=== PATIENT | female | born 1985 | race Caucasian/White ===

== ENCOUNTER 2017-09-07 20:36 | Emergency (ER) | payer BC ==
[2017-09-07] MEDS ORDERED: NS 0.9% 1000 ML* 1,000 ML IV ONE (21:52)
[2017-09-07 22:38] LABS: Hematocrit 34 % (35-47); Hemoglobin 10.8 g/dl (12.0-16.0); Mean Corpuscular HGB Conc 32 g/dl (31-36); Mean Corpuscular Hemoglobin 22 pg (27-31); Mean Corpuscular Volume 69 fL (80-97); Mean Platelet Volume 8.2 um3 (7.4-10.4); Platelet Count 267 10^3/ul (150-450); Red Blood Count 4.85 10^6/ul (4.0-5.4); Red Cell Distribution Width 17 % (10.5-15); White Blood Count 7.3 10^3/ul (3.5-10.8)
[2017-09-07 22:47] LABS: INR 0.93 (0.77-1.02)
[2017-09-07 22:53] LABS: EGFR Non-African American 87.6 (>60)
[2017-09-07] MEDS ORDERED: Potassium Chlor TAB* 20 MEQ TAB.ER PO ONE (22:58)
[2017-09-07 23:18] LABS: ABS Basophils 0.1 10^3/ul (0-0.2); ABS Eosinophils 0.1 10^3/ul (0-0.6); ABS Monocytes 0.5 10^3/ul (0-0.8); ABS Neutrophils 3.6 10^3/ul (1.5-7.7); ABS Nucleated RBC 0 10^3/ul; Eosinophil % 1.4 % (0-6); Lymphocyte % 41.9 % (25-47); Nucleated Red Blood Cells % 0.1
--- NOTE | 2017-09-07 23:38 | ED ---
Chris Cho Rebecca, scribed for Victoriano Gavin MD on 09/07/17 at 2148 . Shortness of Breath - HPI Summary HPI Summary: Pt is a 32 y/o F who presents to ED c/o SOB characterized as dyspnea at rest. Sx have been present for about 1 month, becoming significantly worse tonight at 1999 after eating dinner. SOB unchanged by inhalers. Additionally c/o lightheadedness. Has been following up with her [employer] Berta Jonas and Dr. Ramsey. Has had a CXR and blood work done, which showed slight anemia, and has an echocardiogram scheduled for tomorrow. Menstrual periods are light and she does not have children. 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 Negative PMHx anemia. - History of Current Complaint Chief Complaint: EDShortnessOfBreath Time Seen by Provider: 09/07/17 21:32 Hx Obtained From: Patient Onset/Duration: Still Present, Worse Since - 1999 Dyspnea At: Rest Aggrevating Factors: Nothing Alleviating Factors: Nothing Associated Signs & Symptoms: Dizzy - Lightheadedness - Allergy/Home Medications Allergies/Adverse Reactions: Allergies Allergy/AdvReac Type Severity Reaction Status Date / Time No Known Allergies Allergy Verified 09/07/17 20:44 Home Medications: Home Medications Budesonide Flexhaler 180 (NF) [Pulmicort Flexhaler 180 mcg/act (NF)] 2 puff INH BID 09/07/17 [History Confirmed 09/07/17] Escitalopram Oxalate [Lexapro 10 mg] 10 mg PO DAILY 09/07/17 [History Confirmed 09/07/17] PMH/Surg Hx/FS Hx/Imm Hx Endocrine/Hematology History: Denies: Hx Diabetes, Hx Thyroid Disease Cardiovascular History: Denies: Hx Congestive Heart Failure, Hx Hypertension, Hx Pacemaker/ICD, Other Cardiovascular Problems/Disorders Respiratory History: Denies: Hx Asthma, Hx Chronic Obstructive Pulmonary Disease (COPD) GI History: Denies: Hx Ulcer Psychiatric History: Reports: Hx Anxiety, Hx Depression - Surgical History Surgery Procedure, Year, and Place: open heart surgery at one month old Infectious Disease History: No Infectious Disease History: Denies: Hx Hepatitis, Hx Human Immunodeficiency Virus (HIV), Traveled Outside the [place] in Last 30 Days - Family History Known Family History: Positive: Other - PE - mother - Social History Alcohol Use: None Substance Use Type: Reports: None Hx Tobacco Use: No Smoking Status (MU): Never Smoked Tobacco Review of Systems Negative: Fever Positive: Shortness Of Breath Neurological: Other - Lightheadedness All Other Systems Reviewed And Are Negative: Yes Physical Exam - Summary Physical Exam Summary: VITAL SIGNS: Reviewed. GENERAL: ~Patient is a well-developed and nourished female who is lying comfortable in the stretcher. Patient is not in any acute respiratory distress. HEAD AND FACE: No signs of trauma. No ecchymosis, hematomas or skull depressions. No sinus tenderness. EYES: PERRLA, EOMI x 2, No injected conjunctiva, no nystagmus. EARS: Hearing grossly intact. Ear canals and tympanic membranes are within normal limits. MOUTH: Oropharynx within normal limits. NECK: Supple, trachea is midline, no adenopathy, no JVD, no carotid bruit, no c- spine tenderness, neck with full ROM. CHEST: Symmetric, no tenderness at palpation LUNGS: Clear to auscultation bilaterally. No wheezing or crackles. CVS: Regular rate and rhythm, S1 and S2 present, 2-2 systolic murmur over the left sternal border, no gallops appreciated. ABDOMEN: Soft, non-tender. No signs of distention. No rebound no guarding, and no masses palpated. Bowel sounds are normal. EXTREMITIES: FROM in all major joints, no edema, no cyanosis or clubbing. NEURO: Alert and oriented x 3. No acute neurological deficits. Speech is normal and follows commands. SKIN: Dry and warm, pale Triage Information Reviewed: Yes Vital Signs On Initial Exam: Initial Vitals Temp Pulse Resp BP Pulse Ox 98.1 F 52 20 128/72 100 09/07/17 20:39 09/07/17 20:39 09/07/17 20:39 09/07/17 20:39 09/07/17 20:39 Vital Signs Reviewed: Yes Diagnostics - Vital Signs Vital Signs Temp Pulse Resp BP Pulse Ox 09/07/17 20:39 98.1 F 52 20 128/72 100 - Laboratory Result Diagrams: 09/07/17 22:21 09/07/17 22:21 Lab Statement: Any lab studies that have been ordered have been reviewed, and results considered in the medical decision making process. - Radiology CXR Xray Interpretation: No Acute Changes - Pending official report. Radiology Interpretation Completed By: ED Physician - EKG 2204 Cardiac Rate: Bradycardia - 54 bpm EKG Interpretation: 1st degree AV block. Normal axis, no ischemic changes. Re-Evaluation - Re-Evaluation First Eval Re-Evaluation Time: 23:25 Change: Improved Comment: Pt's sx have improved. Discussed results. Course/Dx - Course Assessment/Plan: Pt is a 32 y/o F who presents to ED c/o SOB characterized as dyspnea at rest for about 1 month, worsening tonight at 2000 after eating dinner , unchanged by inhalers with lightheadedness. Has been following up with her [employer] Berta Jonas and Dr. Ramsey. 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 Negative PMHx anemia. Blood work was done with results inclduing a troponin of 0.00. CXR reveals no acute findings. EKG is sinus bradycardia with no ischemic changes. In the ED course, pt received potassium chloride and fluids. On reevaluaiton, she is feeling better. She will be D/C to home with Dx of anxiety and SOB with a follow up with her wheat buyer tomorrowas scheduled. She understands and agrees. - Diagnoses Provider Diagnoses: Shortness of breath, Anxiety Discharge - Sign-Out/Discharge Documenting (check all that apply): Discharge/Admit/Transfer - Discharge - Discharge Plan Condition: Stable Disposition: HOME Patient Education Materials: Anxiety (ED), Shortness of Breath (ED) Referrals: Christina Sims MD [Primary Care Provider] - 3 Days Additional Instructions: RETURN TO ED FOR ANY NEW OR WORSENING SYMPTOMS. Follow up with cardiology tomorrow, as scheduled. The documentation as recorded by the Chris posada Rebecca accurately reflects the service I personally performed and the decisions made by me, Victoriano Gavin MD.
[2017-09-07 23:46] VITALS: BP 103/61
--- NOTE | 2017-09-08 07:26 | RAD ---
INDICATION: Shortness of breath. COMPARISON: Comparison is made with a prior study from September 01, 2017. TECHNIQUE: Dual-energy PA and lateral views of the chest were obtained. FINDINGS: The patient is status post remote median sternotomy. The heart is within normal limits in size. The lungs are slightly hyperinflated and clear. No pleural effusion is seen. IMPRESSION: POST SURGICAL CHANGES, NO EVIDENCE FOR ACUTE FINDING.
== END 2017-09-07 23:54 | disposition home or self-care (01) ==
LOC: ED 20:36
DX: R06.02 Shortness of breath (principal); F41.9 Anxiety disorder, unspecified; I44.0 Atrioventricular block, first degree; R42 Dizziness and giddiness; F32.9 Major depressive disorder, single episode, unspecified; Z83.6 Family history of other diseases of the respiratory system
CPT/HCPCS: 36415; 71046; 80053; 83880; 84484; 84702; 85025; 85060; 85610; 85730; 86140; 86850; 86900; 86901; 87040; 93005; 96360; 99283; A9270-GY

== ENCOUNTER 2019-05-08 10:37 | Day surgery (SDC) | payer BC ==
[~2019-05-08 10:37] MED LIST: Buffered Lidocaine 1% SYRIN* 1 ML/SYRINGE INTRADERM ONE; DOXYcycline IV 200 MG in NS 250 mL *Pre-Op OBGYN IVPB ONE; Lactated Ringers 1000 ML Bag* 1,000 ML IV SCH
[2019-05-08] MEDS ORDERED: Buffered Lidocaine 1% SYRIN* 1 ML/SYRINGE INTRADERM ONE (11:04)
[2019-05-08] MEDS ORDERED: Lidocaine 2% PF * 5 ML VIAL ONE (12:36)
[2019-05-08] MEDS ORDERED: fentaNYL* 50 MCG/ML 2 ML VIAL (100 MCG VIAL) ONE (12:36)
[2019-05-08] MEDS ORDERED: Propofol* 10 MG/ML 20 ML BTL ONE ×2 (12:36→12:52)
[2019-05-08] MEDS ORDERED: Midazolam* 1 MG/ML 2 ML VIAL (2 MG) ONE (12:36)
[2019-05-08] MEDS ORDERED: Misoprostol TAB* 200 MCG ONE ×2 (12:48→13:16)
[2019-05-08] MEDS ORDERED: Lidocaine 1% INJ* 10 MG/ML 30 ML SDV ONE (12:48)
[2019-05-08] MEDS ORDERED: Acetaminophen TAB* 325 MG PO PRN (13:48)
[2019-05-08] MEDS ORDERED: Ondansetron INJ* 2 MG/ML VIAL IV PRN (13:48)
[2019-05-08] MEDS ORDERED: Naloxone* 0.4 MG/ML 1 ML VIAL IV PRN (13:48)
[2019-05-08] MEDS ORDERED: Ketorolac INJ* 30 MG/ML 1 ML VIAL IV PRN (13:48)
[2019-05-08] MEDS ORDERED: oxyCODONE TAB* 5 MG TAB PO PRN (13:48)
[2019-05-08 15:18] VITALS: BP 101/60
--- NOTE | 2019-05-09 05:30 | OP ---
DATE OF OPERATION: 05/08/19 - [facility] DATE OF : 83 SURGEON: Layla Segovia MD ANESTHESIA: IV sedation with paracervical block. PRE-OP DIAGNOSIS: Intrauterine , missed , 5 plus weeks gestational sac. POST-OP DIAGNOSIS: Intrauterine , missed , 5 plus weeks gestational sac. OPERATIVE PROCEDURE: Dilation, evacuation, curettage. ESTIMATED BLOOD LOSS: 100 cc. URINE OUTPUT: 100 cc clear yellow urine. FLUIDS: 1000 cc of crystalloid. FINDINGS: Revealed intrauterine contents consistent with products of conception. SPECIMEN: Intrauterine contents. COMPLICATIONS: None apparent. DISPOSITION: Stable to recovery room. DESCRIPTION OF PROCEDURE: The patient was placed in dorsal lithotomy position. Perineum and vagina were prepped and draped in a sterile standard fashion. The patient was identified with universal protocol for correct position, patient , and procedure. Self cath was inserted for drainage of clear yellow urine. Self cath was removed. Sterile speculum was inserted. The anterior lip of the cervix injected with 1% lidocaine and then grasped with single tooth tenaculum. A paracervical block was carried out for a total of 10 cc of 1% lidocaine. The cervix was then dilated to a #9 Hegar dilator. An 8 mm curved suction curette was then applied for complete evacuation of intrauterine contents. Sharp curettage was performed confirming removal of intrauterine products of conception. Single-tooth tenaculum was removed. Sterile speculum was removed. 800 mcg of Cytotec was placed intravaginally. All sponge, needle, and blade counts were correct at the case. The patient was returned to the supine position and then taken to recovery room in stable condition. [id number]/[facility] #: [id number] [facility]
== END 2019-05-08 15:41 | disposition home or self-care (01) ==
LOC: OR 10:37
PROVIDERS: ATTEND Obstetrics & Gynecology
DX: O02.1 Missed abortion (principal); Z87.891 Personal history of nicotine dependence; F41.8 Other specified anxiety disorders; D64.9 Anemia, unspecified; Q26.2 Total anomalous pulmonary venous connection; E03.9 Hypothyroidism, unspecified; R00.2 Palpitations
CPT/HCPCS: 88305; A9270-GY; J2250; J2704; J3010

== ENCOUNTER 2021-01-07 06:11 | Inpatient (IN) ==
[2021-01-07] MEDS: ceFOXitin 2 GM IVPREMIX 2 GM/50 ML BAG ONE ×2 (07:19→07:55)
[2021-01-07] MEDS ORDERED: Morphine PF AMP (0.5MG/ML) 5 MG/10 ML AMP ONE (07:48)
[2021-01-07] MEDS ORDERED: Ondansetron 4 mg VIAL 2 MG/ML 2 ml VIAL ONE (07:52)
[2021-01-07] MEDS ORDERED: Oxytocin 10 UNITS/ML 1 ML VIAL ONE (07:52)
[2021-01-07] MEDS ORDERED: Phenylephrine 40 mcg/mL 10mL (400mcg) SYRINGE ONE (07:53)
[2021-01-07 08:05] LABS: Urine Benzodiazepine Screen None Detected (None Detect); Urine Cannabinoids Screen None Detected (None Detect); Urine Opiates Screen None Detected (None Detect)
[2021-01-07] MEDS ORDERED: Acetaminophen IV 1 GM/100ML 100 ML IV ONE (08:44)
[2021-01-07] MEDS ORDERED: DiMENhydriNATE IV 50 mg/ml 1 ml VIAL IV PUSH PRN (08:48)
[2021-01-07] MEDS ORDERED: Naloxone 0.4 mg VIAL 0.4 mg/ml 1 ml VIAL IV PRN ×2 (08:48→08:50)
[2021-01-07] MEDS ORDERED: HYDROmorphone 1 MG/1 ML SYRINGE IV PRN (08:48)
[2021-01-07] MEDS ORDERED: Ondansetron 4 mg VIAL 2 MG/ML 2 ml VIAL IV PRN (08:50)
[2021-01-07] MEDS ORDERED: diPHENhydraMINE IV 50 MG/ML 1 ml VIAL (BENADRYL) IV PRN (08:50)
[2021-01-07] MEDS ORDERED: oxyCODONE/Acetamin 5/325 mg TAB PO PRN (08:50)
[2021-01-07] MEDS ORDERED: EPHEDrine (Pressors) 50 MG/ML VIAL ONE (09:00)
[2021-01-07 10:13] LABS: Urine Appearance Cloudy; Urine Bilirubin Negative (Negative); Urine Blood 2+ (Negative); Urine Color Yellow; Urine Glucose Negative (Negative); Urine Ketones Negative (Negative); Urine Nitrite Negative (Negative); Urine Protein 1+(30 mg/dL) (Negative); Urine Urobilinogen Negative (Negative)
[2021-01-07 10:16] LABS: Urine Bacteria Absent (Absent); Urine Red Blood Cell 3+(>10/hpf) (Absent); Urine Squamous Epithelial Cell Present (Absent); Urine White Blood Cell Trace(0-5/hpf) (Absent)
[2021-01-07] MEDS ORDERED: Witch Hazel PAD JAR TOPICAL PRN (10:59)
[2021-01-07] MEDS ORDERED: Glycerin ADULT 2.4 gm SUPP PR PRN (10:59)
[2021-01-07] MEDS ORDERED: Dibucaine 1% OINT 28.35 GM TUBE PR PRN (10:59)
[2021-01-07] MEDS ORDERED: Lactated Ringers 1000 ml BAG 1,000 ML IV SCH (11:00)
[2021-01-07] MEDS ORDERED: Oxytocin in LR 20 UNITS/1,000 ML BAG IVPB SCH (11:00)
[2021-01-08 06:46] LABS: ABS Eosinophils 0.1 10^3/ul (0-0.6); ABS Lymphocytes 1.6 10^3/ul (1.0-4.8); ABS Monocytes 0.5 10^3/ul (0-0.8); ABS Neutrophils 6.9 10^3/ul (1.5-7.7); Eosinophil % 1.1 %; Hematocrit 31 % (35-47); Hemoglobin 10.9 g/dL (12.0-16.0); Lymphocyte % 17.5 %; Mean Corpuscular HGB Conc 35 g/dL (31-36); Mean Corpuscular Hemoglobin 31 pg (27-31); Mean Corpuscular Volume 88 fL (80-97); Mean Platelet Volume 8.1 fL (7.4-10.4); Platelet Count 157 10^3/uL (150-450); Red Cell Distribution Width 13 % (10-15); White Blood Count 9.2 10^3/uL (3.5-10.8)
[2021-01-10 08:09] VITALS: BP 116/54
== END 2021-01-10 12:30 | disposition home or self-care (01) | DRG 540 ==
LOC: MCHOB 06:11
PROVIDERS: ADMIT Obstetrics & Gynecology; ATTEND Obstetrics & Gynecology

== ENCOUNTER 2023-04-22 05:39 | Inpatient (IN) ==
[2023-04-20 16:56] LABS: Influenza A Molecular Negative (Negative); Influenza B Molecular Negative (Negative)
[2023-04-20 21:15] LABS: SARS Coronavirus-2 Negative (Negative)
[2023-04-22] MEDS ORDERED: Sodium Citrate/Citric Acid LIQ 15 ML UDC PO ONE ×2 (05:59→06:00)
[2023-04-22] MEDS ORDERED: Buffered Lidocaine 1% SYRIN 1 ml INTRADERM ONE ×2 (05:59→06:00)
[2023-04-22] MEDS ORDERED: ceFOXitin 2 GM IVPREMIX 2 GM/50 ML BAG IVPB ONE (05:59)
[2023-04-22] MEDS ORDERED: Lactated Ringers 1000 ml BAG 1,000 ML IV ONE (05:59)
[2023-04-22] MEDS ORDERED: Lactated Ringers 1000 ml BAG 1,000 ML IV SCH ×3 (06:00→10:00)
[2023-04-22] MEDS ORDERED: Oxytocin 10 UNITS/ML 1 ML VIAL ONE ×2 (07:12→08:57)
[2023-04-22] MEDS ORDERED: Ondansetron 4 mg VIAL 2 MG/ML 2 ml VIAL ONE (07:12)
[2023-04-22] MEDS ORDERED: Dexamethasone IV 4 MG/ML VIAL 1 ml VIAL ONE (07:12)
[2023-04-22] MEDS ORDERED: Morphine PF AMP (0.5MG/ML) 5 MG/10 ML AMP ONE (07:13)
[2023-04-22 07:19] LABS: ABS Eosinophils 0.1 10^3/uL (0.0-0.5); ABS Lymphocytes 1.8 10^3/uL (1.0-4.8); ABS Monocytes 0.4 10^3/uL (0.0-0.9); ABS Neutrophils 5.5 10^3/uL (1.5-7.6); ABS Nucleated RBC 0.02 10^3/ul; Eosinophil % 1.1 %; Hematocrit 32.5 % (35-45); Hemoglobin 10.8 g/dL (11.5-14.3); Lymphocyte % 23.2 %; Mean Corpuscular Hemoglobin 25.4 pg (27-33); Mean Corpuscular Hgb Conc 33.2 g/dL (31-36); Mean Corpuscular Volume 76.5 fL (80-97); Mean Platelet Volume 8.9 fL (7.5-11.2); Nucleated Red Blood Cells % 0.3 %/100WBC (0.0-0.8); Platelet Count 184 10^3/uL (150-450); Red Blood Count 4.25 10^6/uL (3.63-4.92); Red Cell Distribution Width 14.5 % (12-17); White Blood Count 7.9 10^3/uL (3.8-11.8)
[2023-04-22] MEDS ORDERED: Scopolamine 1 mg/72hr PATCH ONE (07:30)
[2023-04-22] MEDS ORDERED: fentaNYL 100 mcg/2 ml 50 MCG/ML VIAL ONE (07:40)
[2023-04-22] MEDS ORDERED: Scopolamine 1 mg/72hr PATCH TRANSDERM SCH (08:00)
[2023-04-22] MEDS ORDERED: Bupivacaine-MPF SPINAL 7.5 MG/ML - 2ML AMP ONE (08:01)
[2023-04-22] MEDS ORDERED: Phenylephrine 40 mcg/mL 10mL (400mcg) SYRINGE ONE (08:06)
[2023-04-22] MEDS ORDERED: Acetaminophen IV 1 GM/100ML 1,000 MG/100 ML BAG IV ONE (08:12)
[2023-04-22] MEDS ORDERED: Naloxone 0.4 mg VIAL 0.4 mg/ml 1 ml VIAL IV PRN (08:30)
[2023-04-22] MEDS ORDERED: Acetaminophen IV 1 GM/100ML 1,000 MG/100 ML BAG IV PRN (08:31)
[2023-04-22] MEDS ORDERED: Ondansetron 4 mg VIAL 2 MG/ML 2 ml VIAL IV PRN (08:31)
[2023-04-22] MEDS ORDERED: Naloxone 0.4 mg VIAL 0.4 mg/ml 1 ml VIAL IV PUSH PRN (08:31)
[2023-04-22] MEDS ORDERED: Metoclopramide 5 MG/ML VIAL (10 mg) IV PRN (08:31)
[2023-04-22] MEDS ORDERED: Glycerin ADULT 2.4 gm SUPP PR PRN (09:23)
[2023-04-22] MEDS ORDERED: Witch Hazel PAD JAR TOPICAL PRN (09:23)
[2023-04-22] MEDS ORDERED: Dibucaine 1% OINT 28.35 GM TUBE PR PRN (09:23)
[2023-04-22] MEDS ORDERED: Oxytocin in LR 20,000 MILLI.UNIT/1,000 ML BAG IV SCH (09:25)
[2023-04-22 09:38] LABS: Urine Appearance Clear; Urine Bilirubin Negative (Negative); Urine Blood 1+ (Negative); Urine Color Yellow; Urine Glucose Negative (Negative); Urine Ketones Negative (Negative); Urine Nitrite Negative (Negative); Urine Protein Negative (Negative); Urine Specific Gravity 1.004 (1.002-1.030); Urine Urobilinogen Negative (Negative)
[2023-04-22 09:43] LABS: Urine Bacteria Absent (Absent); Urine Red Blood Cell Trace(0-2/hpf) (Absent); Urine White Blood Cell Trace(0-5/hpf) (Absent)
[2023-04-22 10:04] LABS: Urine Benzodiazepine Screen None Detected (None Detect); Urine Cannabinoids Screen None Detected (None Detect); Urine Opiates Screen None Detected (None Detect)
[2023-04-23 09:45] LABS: ABS Eosinophils 0.1 10^3/uL (0.0-0.5); ABS Lymphocytes 1.8 10^3/uL (1.0-4.8); ABS Monocytes 0.6 10^3/uL (0.0-0.9); ABS Nucleated RBC 0.02 10^3/ul; Eosinophil % 0.9 %; Hematocrit 31.3 % (35-45); Hemoglobin 10.6 g/dL (11.5-14.3); Lymphocyte % 18.9 %; Mean Corpuscular Hgb Conc 33.9 g/dL (31-36); Mean Corpuscular Volume 76.6 fL (80-97); Mean Platelet Volume 8.6 fL (7.5-11.2); Nucleated Red Blood Cells % 0.2 %/100WBC (0.0-0.8); Platelet Count 201 10^3/uL (150-450); Red Blood Count 4.09 10^6/uL (3.63-4.92); Red Cell Distribution Width 14.2 % (12-17); White Blood Count 9.5 10^3/uL (3.8-11.8)
[2023-04-24 08:37] VITALS: BP 126/72
== END 2023-04-24 13:30 | disposition home or self-care (01) | DRG 540 ==
LOC: MCHOB 05:39
PROVIDERS: ADMIT Obstetrics & Gynecology; ATTEND Obstetrics & Gynecology